=== PATIENT | male | born 1990 | race Caucasian/White ===

== ENCOUNTER 2018-12-04 05:15 | Emergency (ER) | payer MEDICAID ==
[~2018-12-04] VITALS: Ht 180.3 cm; Wt 86.0 kg
[2018-12-04 05:26] VITALS: Ht 180.3 cm; Wt 86.0 kg
[2018-12-04 07:04] VITALS: BP 134/74
== END 2018-12-04 07:10 | disposition home or self-care (01) ==
LOC: ED 05:15
DX: L02.413 Cutaneous abscess of right upper limb (principal); L02.213 Cutaneous abscess of chest wall
CPT/HCPCS: J0696; J2001